=== PATIENT | female | born 1975 | race Caucasian/White ===

== ENCOUNTER → 2017-10-12 | Outpatient (REF) | payer OTHER ==
[2017-10-17 14:18] LABS: HPV HYBRID CAPTURE II Negative (Negative)
== END ==
LOC: M LAB REF 17:57
DX: Z01.419 Encounter for gynecological examination (general) (routine) without abnormal findings (principal); Z11.51 Encounter for screening for human papillomavirus (HPV)
CPT/HCPCS: G0123

== ENCOUNTER → 2018-12-19 | Outpatient (REF) | payer OTHER, SELFPAY | LOC: M LAB REF 08:56 | PROVIDERS: ATTEND Radiology Diagnostic Radiology | DX: D24.1 Benign neoplasm of right breast (principal) ==

== ENCOUNTER → 2019-10-31 | Outpatient (CLI) | payer BC | LOC: M LABSMTC 12:31 | PROVIDERS: ATTEND Family Medicine | DX: Z11.59 Encounter for screening for other viral diseases (principal); Z20.828 Contact with and (suspected) exposure to other viral communicable diseases ==

== ENCOUNTER → 2020-08-13 | Outpatient (CLI) | payer BC ==
[~2020-08-13] MED LIST: SAXE1INJ SC
== END ==
LOC: M LABSMTC 13:59
PROVIDERS: ATTEND Anesthesiology
DX: Z01.812 Encounter for preprocedural laboratory examination (principal); Z20.822 Contact with and (suspected) exposure to COVID-19

== ENCOUNTER 2020-08-18 09:33 | Day surgery (SDC) | payer BC ==
[~2020-08-18] VITALS: Ht 160 cm; Wt 75.8 kg
[~2020-08-18 09:33] MED LIST changes: +CLINDAMYCIN 300 MG in IV 1 EA IV ONE; +HEPARIN SOD (PORCINE) 5000UNITS/ML 1ML VIAL/SYRINGE SQ ONE; +LIDOCAINE 2% 100MG/5ML SDV (FOR ANES.) As Ordered ONE; +LR 1,000 ML IV ONE; +MIDAZOLAM INJ 2MG/2ML VIAL (J2250 PER 1MG) As Ordered ONE; +ONDANSETRON 4MG/2ML VIAL As Ordered ONE; +ROCURONIUM BROMIDE 50 MG/5 ML VIAL As Ordered ONE; +dexameTHASONE 4 MG/ML 1ML VIAL (J1100 PER 1MG) As Ordered ONE; +fentaNYL 250 MCG/5 ML INJECTION (J3010) As Ordered ONE; +propofoL 200 MG/20 ML VIAL As Ordered ONE
[2020-08-18] MEDS ORDERED: BACITRACIN PWD 50,000 UNITS VIAL As Ordered ONE (11:07)
[2020-08-18] MEDS ORDERED: BUPIVACAINE LIPOSOME/PF 1.3% 20ML VIAL (13.3MG/ML)(EXPAREL)(C9290 PER1MG) As Ordered ONE (11:07)
[2020-08-18] MEDS ORDERED: ePHEDrine SULFATE 25 MG/5 ML(5MG/ML) SYRINGE As Ordered ONE (12:04)
[2020-08-18] MEDS ORDERED: ROCURONIUM BROMIDE 50 MG/5 ML VIAL As Ordered ONE (12:32)
[2020-08-18] MEDS ORDERED: ACETAMINOPHEN 1000MG 100ML IV BTL (OFIRMEV) (J0131 PER 10MG) As Ordered ONE (13:27)
[2020-08-18] MEDS ORDERED: HYDROmorphone HCL 2 MG/ML 1ML VIAL (J1170) As Ordered ONE (13:52)
[2020-08-18] MEDS ORDERED: METOCLOPRAMIDE INJ 10MG/2ML VIAL (J2765 PER 1) As Ordered ONE (13:56)
[2020-08-18] MEDS ORDERED: SUGAMMADEX SODIUM 500 MG/5 ML VIAL (BRIDION) As Ordered ONE (13:56)
[2020-08-18] MEDS ORDERED: ONDANSETRON 4MG/2ML VIAL IV PRN ×2 (14:30→15:00)
[2020-08-18] MEDS ORDERED: PERCOCET 5MG/325MG TAB PO PRN (14:30)
--- NOTE | 2020-08-18 14:30 | POST-OPPD ---
Postoperative Procedure Note Date Of Procedure: Aug 18, 2020 PREOPERATIVE DIAGNOSIS: Panniculitis POSTOPERATIVE DIAGNOSIS: same FINDINGS: pannus PROCEDURE: Extended panniculectomy with rectus muscle plication. SURGEON: Dr Paredes ANESTHESIA: General SPECIMENS: Pannus 1335gm ESTIMATED BLOOD LOSS: 75 cc REPLACED: none DRAINS: 10 mm OSCAR x 2 COMPLICATIONS: none POSTOPERATIVE CONDITION: stable MILKA PAREDES DO Aug 18, 2020 14:30
[2020-08-18] MEDS ORDERED: NORCO, ANEXSIA 5/325MG TABLET (HYDROcodone/ACETAMINOPHEN) As Ordered ONE (14:55)
[2020-08-18] MEDS ORDERED: MORPHINE 2 MG/ML 1ML VIAL (J2270) IV PRN (15:00)
[2020-08-18] MEDS ORDERED: LR 1,000 ML IV SCH (15:00)
[2020-08-18] MEDS ORDERED: fentaNYL 100 MCG/2 ML INJECTION (J3010) IV PRN (15:00)
[2020-08-18] MEDS ORDERED: NORCO, ANEXSIA 5/325MG TABLET (HYDROcodone/ACETAMINOPHEN) PO PRN ×2 (15:00→16:00)
--- NOTE | 2020-08-18 16:13 | ROOPDOC ---
[facility] Report Of Operation Report of Operation DATE OF PROCEDURE: 08/18/20 REOPERATIVE DIAGNOSIS: Panniculitis POSTOPERATIVE DIAGNOSIS: same FINDINGS: pannus PROCEDURE: Extended panniculectomy with rectus muscle plication. SURGEON: Dr Paredes ANESTHESIA: General SPECIMENS: Pannus 1335gm ESTIMATED BLOOD LOSS: 75 cc REPLACED: none DRAINS: 10 mm OSCAR x 2 COMPLICATIONS: none POSTOPERATIVE CONDITION: stable Procedure: This is a 45-year-old female status post significant weight loss. Patient has excessive pannus above and mostly below the umbilicus with large mons pubis ptosis. Patient is scheduled for extended panniculectomy. Risks benefits and alternatives discussed with the patient in details. Informed consent confirmed and preoperative holding area. Patient was marked in upright position. She was brought into the operating room, placed in supine position, preoperative antibiotics given, sequential stockings placed in the lower calves, and then general anesthesia is induced. 5000 units heparin given subcutaneously. Fully introduced in the bladder without any difficulties with yellow clear urine p resent. She was prepped and draped in the usual sterile fashion. Lower abdominal incision made 7 cm above the labial crease along patient's natural suprapubic crease. Incision carried out with 10 blade. Careful sharp dissection with electrocautery and peek cautery was done until the fascia of rectus muscle is identified. Following the musculoaponeurotic fascial plane superiorly, the abdominal skin and subcutaneous tissue are undermined. Vessels were identified throughout and either cauterized or suture ligated for hemostasis control. Significant scarring was encountered at the lower mid abdominal area status post section surgery. Fascia completely intact. Infraumbilical flap was divided in the middle to aid the dissection. We continued our dissection until umbilicus was encountered. Rhomboid incision made around the umbilicus and dissection continued until xiphoid process superiorly and costal margins laterally. Rectus muscle evaluated and diathesis was identified 7 cm midline. Rectus muscle was plicated with 0 Vicryl sutures in interrupted fashion, followed by #1 PDS running locked suture. Wound is irrigated with bacitracin normal saline irrigation. Exparel block given into rectus muscle total 16 mL. Patient placed on placed in the reflex position and excess tissue which consists off abdominal skin and subcutaneous tissue was measured and resected using electrocautery. Total weight of the pannus 1335 g. Careful hemostasis was assured. The flap was realigned and was started all closure with deep sutures of 0 Vicryl realigning the mons pubis and closing the lower abdominal incision. 3 mL Monocryl V lock suture used for subcutaneous closure followed by 3-0 Monocryl interrupted sutures as well. Additional 0 Vicryl sutures were placed midline in interrupted fashion between the subcuticular tissue and fascia. Two 10 mm Bhavik-Schrader drains were placed throughout lower abdominal incision. New opening was created for the umbilical stump using electrocautery. The umbilicus was brought into view and sutured in place with interrupted 3-Monocryl sutures and 5-0 plain gut sutures in the running fashion. Remaining Exparel was given into the lower abdominal incision and the drain area. Prinio dressing applied to lower abdominal incision, Xeroform to umbilicus, and bulky dressing throughout. Abdominal binder applied. Patient extubated in the operating room without any difficulties and transferred to recovery room in stable condition. MILKA PAREDES DO Aug 18, 2020 16:13
[2020-08-18 16:20] VITALS: BP 134/79
[2020-08-18] MEDS: LR 1,000 ML IV SCH (16:48)
[2020-08-18 17:28] VITALS: BP 148/76
[2020-08-18 18:00] VITALS: BP 131/78
[2020-08-18] MEDS ORDERED: diphenhydrAMINE 50MG/ML VIAL (J1200) IV PRN (18:30)
[2020-08-18] MEDS: CLINDAMYCIN 300 MG in IV 1 EA IV SCH (20:16)
[2020-08-18] MEDS: ACETAMINOPHEN TAB 650MG DOSE (2X325MG) PO PRN (20:23)
[2020-08-18 22:00] VITALS: BP 143/92
[2020-08-18] MEDS: KETOROLAC TROMETHAMINE 10 MG TAB PO PRN (22:35)
[2020-08-19] MEDS: ACETAMINOPHEN TAB 650MG DOSE (2X325MG) PO PRN ×3 (02:11→15:31)
[2020-08-19] MEDS: CLINDAMYCIN 300 MG in IV 1 EA IV SCH ×2 (04:57→12:00)
[2020-08-19] MEDS: KETOROLAC TROMETHAMINE 10 MG TAB PO PRN ×2 (04:58→10:56)
[2020-08-19] MEDS: LR 1,000 ML IV SCH (04:58)
[2020-08-19 06:00] VITALS: BP 141/80
--- NOTE | 2020-08-19 09:47 | IPNPDOC ---
Subjective General Date Seen: Aug 19, 2020 Subject Chief Complaint/History The patient is a 45-year-old female admitted with a reason for visit of Panniculitis. Patient is status extended panniculectomy with rectus muscle plication postop day 1. Feeling well, ambulating, tolerating regular diet, pain controlled. Current Medications Current Medications Current Medications Medications (Trade) Dose Ordered Sig/Jet Route PRN Reason Start Time Stop Time Status Last Admin Dose Admin Acetaminophen (Tylenol Tab) 650 mg Q6H PRN PO MILD PAIN (PS 1-4) 08/18/20 14:30 08/19/20 09:26 Acetaminophen/ Hydrocodone Bitart ([place], Anexsia 5/325) 1 tab ASDIRECTED PRN PO PAIN LEVEL 1-4 08/18/20 15:00 08/18/20 16:00 DC 08/18/20 15:15 Acetaminophen/ Hydrocodone Bitart ([place], Anexsia 5/325) 2 tab Q4H PRN PO SEVERE PAIN (PS 8-10) 08/18/20 16:00 Clindamycin Phosphate 300 mg/ IV Miscellaneous Supplies 50 ml @ 100 mls/hr Q8H IV 08/18/20 20:00 08/19/20 04:57 Diphenhydramine HCl (Benadryl) 25 mg Q6HP PRN IV ITCHING 08/18/20 18:30 Fentanyl Citrate (Sublimaze) 25 mcg Q5MP PRN IV PAIN LEVEL 5-10 08/18/20 15:00 08/18/20 16:00 DC Ketorolac Tromethamine (ToRADol) 10 mg Q6HP PRN PO MODERATE PAIN (PS 5-7) 08/18/20 14:30 08/23/20 14:29 08/19/20 04:58 Lactated Ringer's 1,000 ml @ 75 mls/hr [id number] IV 08/18/20 14:30 08/19/20 04:58 Lactated Ringer's 1,000 ml @ 80 mls/hr [id number] IV 08/18/20 15:00 08/18/20 16:00 DC Miscellaneous (Unresolved Clarification Entry) SEE LABEL COMMENTS DAILY XX 08/18/20 09:00 08/18/20 15:56 DC Morphine Sulfate (Morphine Sulfate Inj) 2 mg Q5MP PRN IV PAIN LEVEL 4-7 08/18/20 15:00 08/18/20 16:00 DC Ondansetron HCl (ZOFRAN INJection) 4 mg Q4H PRN IV NAUSEA OR VOMITING 08/18/20 14:30 Ondansetron HCl (ZOFRAN INJection) 4 mg Q4HP PRN IV NAUSEA OR VOMITING 08/18/20 15:00 08/18/20 16:00 DC Oxycodone/ Acetaminophen (Percocet 5mg/ 325mg Tablet) 2 tab Q4HP PRN PO PAIN LEVEL 8-10 08/18/20 14:30 08/18/20 15:55 DC Allergies Coded Allergies: Sulfa (Sulfonamide Antibiotics) (Verified Allergy, Unknown, rash, 08/18/20) amoxicillin (Verified Allergy, Unknown, rash, 08/18/20) oxycodone (Verified Allergy, Unknown, itching, 08/18/20) Objective Physical Examination Examination GENERAL APPEARANCE:Patient seen, laying in bed, awake, alert, and oriented. Comfortable, in no acute distress. SKIN: Warm and moist. LUNGS: Clear to auscultation bilaterally. No wheezing appreciated. HEART: No chest wall abnormalities. Regular rate and rhythm with no murmurs appreciated. ABDOMEN: Abdomen is soft, non-tender, non-distended. Incision intact. Umbilicus viable. OSCAR drains with serosanguinous drainage. 15/15 cc/24hr each drain. EXTREMITIES: No edema identified. No calf tenderness. Vital Signs Vital Signs Date Time Temp Pulse Resp B/P (MAP) Pulse Ox O2 Delivery O2 Flow Rate FiO2 08/19/20 06:00 98.1 79 19 141/80 (100) 97 Room Air 08/18/20 16:00 2 I&Os I&O- Last 24 Hours up to 6 AM 08/19/20 06:00 Intake Total 1650 ml Output Total 1530 ml Balance 120 ml Impression Status post extended panniculectomy with rectus muscle plication postop day 1. Dressings changed today. Stable for discharge with drains. Continue with pain management. Continue with flexed position, may turn side to side. Follow-up plastic surgery Plan / VTE VTE Prophylaxis Ordered?: Yes MILKA PAREDES DO Aug 19, 2020 09:47
[2020-08-19] MEDS ORDERED: KETO10TAB PO (13:11)
== END 2020-08-19 15:55 | disposition home or self-care (01) ==
LOC: M SDC 09:33 → M MS5PR 16:30 → M SDC 08-19 15:55
PROVIDERS: ATTEND Plastic Surgery Surgery of the Hand
DX: M79.3 Panniculitis, unspecified (principal); K66.0 Peritoneal adhesions (postprocedural) (postinfection); I10 Essential (primary) hypertension; J45.909 Unspecified asthma, uncomplicated; Z79.899 Other long term (current) drug therapy
CPT/HCPCS: 15830; 15847; 81025; 88302; 96374; 96376; C9290; J0131; J1100; J1170; J1644; J2250; J2405; J2765; J3010

== ENCOUNTER → 2020-10-20 | Outpatient (REF) | payer BC ==
[~2020-10-20] MED LIST changes: -CLINDAMYCIN 300 MG in IV 1 EA IV ONE; -HEPARIN SOD (PORCINE) 5000UNITS/ML 1ML VIAL/SYRINGE SQ ONE; +KETO10TAB PO; -LIDOCAINE 2% 100MG/5ML SDV (FOR ANES.) As Ordered ONE; -LR 1,000 ML IV ONE; -MIDAZOLAM INJ 2MG/2ML VIAL (J2250 PER 1MG) As Ordered ONE; -ONDANSETRON 4MG/2ML VIAL As Ordered ONE; -ROCURONIUM BROMIDE 50 MG/5 ML VIAL As Ordered ONE; -dexameTHASONE 4 MG/ML 1ML VIAL (J1100 PER 1MG) As Ordered ONE; -fentaNYL 250 MCG/5 ML INJECTION (J3010) As Ordered ONE; -propofoL 200 MG/20 ML VIAL As Ordered ONE
== END ==
LOC: M LAB REF 17:30
PROVIDERS: ATTEND Physician Assistant
DX: J06.9 Acute upper respiratory infection, unspecified (principal)

== ENCOUNTER → 2022-11-16 | Outpatient (CLI) | payer BC ==
[~2022-11-16] MED LIST changes: +GASTROGRAFIN SOLUTION 30ML As Ordered ONE; +ISOVUE-370 76% 100ML VIAL As Ordered ONE
== END ==
LOC: M RAD 15:57
PROVIDERS: ATTEND Family Medicine
DX: K42.9 Umbilical hernia without obstruction or gangrene (principal); K57.30 Diverticulosis of large intestine without perforation or abscess without bleeding
CPT/HCPCS: 74177; Q9963; Q9967

== ENCOUNTER 2024-05-21 06:42 | Day surgery (SDC) | payer BC ==
[~2024-05-21] VITALS: Ht 160 cm; Wt 60.1 kg
[~2024-05-21 06:42] MED LIST changes: -GASTROGRAFIN SOLUTION 30ML As Ordered ONE; -ISOVUE-370 76% 100ML VIAL As Ordered ONE; +NS 250 ML IV ONE; +TIRZ7.5P3 SQ
[2024-05-21] MEDS ORDERED: propofoL 200 MG/20 ML VIAL As Ordered ONE (07:48)
[2024-05-21 07:56] VITALS: TEMP 97.9
[2024-05-21 08:15] VITALS: BP 143/75; O2SAT 97
== END 2024-05-21 08:45 | disposition home or self-care (01) ==
LOC: M OPP 06:42
PROVIDERS: ATTEND Surgery
DX: Z12.11 Encounter for screening for malignant neoplasm of colon (principal); Z12.12 Encounter for screening for malignant neoplasm of rectum; K63.5 Polyp of colon; J45.909 Unspecified asthma, uncomplicated; Z79.899 Other long term (current) drug therapy; I34.1 Nonrheumatic mitral (valve) prolapse; Z88.5 Allergy status to narcotic agent; Z88.2 Allergy status to sulfonamides; Z88.0 Allergy status to penicillin; Z80.3 Family history of malignant neoplasm of breast; Z80.8 Family history of malignant neoplasm of other organs or systems